=== PATIENT | male | born 1980 | race Caucasian/White ===

== ENCOUNTER 2016-08-07 05:56 | Observation (INO) ==
[2016-08-07] MEDS ORDERED: Acetaminophen 325 MG TABLET PO PRN (08:35)
[2016-08-07] MEDS ORDERED: Naloxone 0.4 MG/ML INJ IVP PRN (08:35)
[2016-08-07] MEDS ORDERED: Ondansetron ODT 4 MG TAB.RAPDIS SL PRN (08:35)
--- NOTE | 2016-08-07 08:48 | Cardiology History & Physical ---
Date of Encounter: 08/07/16 Time of Encounter: 08:20 Assessment and Plan (1) Chest pain Current Visit: Yes Status: Acute Typical chest pain symptoms. Troponin negative x 1 per report from outside hospital. Records ordered. Trend troponin. Check TTE. Plan for stress test if troponin negative. Qualifiers: Chest pain type: unspecified Qualified Code(s): R07.9 - Chest pain, unspecified (2) CAD (coronary artery disease) Current Visit: Yes Status: Chronic H/o IN and PCI to the LAD in 2010, minimal disease otherwise. Continue asa, statin, and bb. Stopped taking plavix one month ago. Risk factor modification. Smoking cessation. Healthy diet and exercise. Qualifiers: Coronary Disease-Associated Artery/Lesion type: jamul artery [place] vs. transplanted heart: jamul heart Associated angina: angina presence unspecified Qualified Code(s): I25.10 - Atherosclerotic heart disease of jamul coronary artery without angina pectoris (3) Tobacco abuse Current Visit: No Status: Chronic Smoking cessation discussed. (4) Hypertension Current Visit: No Status: Chronic B/p acceptable. Qualifiers: Hypertension type: essential hypertension Qualified Code(s): I10 - Essential (primary) hypertension (5) SOPHIA (obstructive sleep apnea) Current Visit: No Status: Chronic Discussed compliance with C-pap. He does not consistently wear. History of Present Illness Chief complaint: Chest pain HPI: Mr. 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 He describes midsternal chest pain radiating to his left arm and diaphoresis. He sat down to rest and his symptoms resolved. Last night at 0100 he experienced chest pain that woke him up from his sleep. The pain radiated down his left arm and was associated with SOB. Pain was similair to his previous IN. He took a 325mg aspirin and sat up in a chair with relief of his pain and SOB. He went to [facility]. Work-up included an EKG that showed NSR with no acute ST changes. Initial troponin was negative. he was found to have leukocytosis, WBC 17 per report given by nurse. He was transferred to [facility] by request of patient for further work-up. Actual records have been ordered. He denies fever, chills, cough. Denies recent illness or steroid use. He is currently pain free. Past Med Surg Social Fam HX - Past Medical History Attestation: Yes The following information was validated with the patient. Medical history: coronary artery disease, hyperlipidemia, hypertension, myocardial infarction, other (SOPHIA- does not always wear c-pap.) Psychiatric history: no psych history - Past Surgical History Surgical History: angioplasty/stent - Social History Smoking Status: Current every day smoker Packs per day: 1 Smokeless Tobacco Status: No Alcohol use: none Drug use: none - Family History Mother Age: 50 Family Member Ethnicity: Unknown Living Status: Still Living Hx Family Endocrine Disorder: Yes (diabetes) Father Age: 60 Hx Family Cardiac Disorders: Yes (afib) Medications and Allergies Aspirin [Lo-Dose Aspirin EC] 81 mg DAILY 08/07/16 [History] Carvedilol 12.5 mg PO BID 08/07/16 [History] Nitroglycerin 0.4 mg SL Q5MIN 08/07/16 [History] Omeprazole 20 mg PO DAILY 08/07/16 [History] Proair Hfa 2 puff AER BID PRN 08/07/16 [History] Simvastatin [Zocor] 40 mg PO HS 08/07/16 [History] Allergies Penicillins Allergy (Verified 08/07/16 08:57) Hives All Systems Review: A 10-system review of systems was performed and is negative for pertinent findings except as documented above in the HPI. Physical Examination Vital Signs, Last 4 Hours Temp Pulse Resp BP Pulse Ox 08/07/16 08:01 98.0 F 63 16 130/83 97 General: Conversant, No Apparent Distress HEENT: Atraumatic, Normocephaly, Mucus Membranes Moist Neck: No JVD, Normal carotid pulses Cardiac: Reg Rate and Rhythm, Normal S1 and S2, No Murmur Lungs: Normal Breath Sounds, No Wheeze, Rales, Rhonchi Neuro: Alert and responsive, No focal deficits noted Abdomen: Soft, Non-Tender Skin: No rashes noted on visualized skin Musculoskeletal: No Chest Wall Tenderness Extremities: No Clubbing, No Cyanosis, No Edema, Normal Pulses Results - Imaging and Cardiology Chest Xray: pending (Ordered from outside hospital) - EKG Interpretation EKG results cardiology: personally reviewed (Sr with no acute ST changes.)
[2016-08-07] MEDS ORDERED: Nitroglycerin 0.4 MG TAB.SUBL SL PRN (09:15)
[2016-08-07 09:27] LABS: Basophils # 0.1 K/mcL (0.0-0.2); Basophils % 0.4 %; Eosinophils # 0.2 K/mcL (0.0-0.6); Eosinophils % 2.1 %; Hematocrit 41.5 % (37.5-50.1); Immature Granulocytes % 0.4 % (0-4); Lymphocytes # 3.9 K/mcL (0.6-4.6); Lymphocytes % 35.2 %; Mean Corpuscular HGB Conc 33.7 g/dL (31.6-35.5); Mean Corpuscular Hemoglobin 29.2 pg (28.0-33.3); Mean Corpuscular Volume 86.5 fL (83.0-100.0); Mean Platelet Volume 10.5 fL (9.4-12.4); Monocytes # 0.8 K/mcL (0.0-1.3); Monocytes % 7.5 %; Neutrophils # 6.1 K/mcL (1.6-8.9); Platelet Count 212 K/mcL (140-400); Segmented Neutrophils % 54.4 %
[2016-08-07 09:38] LABS: BUN/Creatinine Ratio 16 (6-26); Blood Urea Nitrogen 13 mg/dL (8-26); Carbon Dioxide 25 mEq/L (19-29); Chloride 106 mEq/L (98-109); Glucose 118 mg/dL (70-99); Magnesium 1.9 mg/dL (1.6-2.6); Osmolality,Calculated 289 (280-300); Potassium 3.6 mEq/L (3.5-4.5); Sodium 139 mEq/L (136-145); eGFR For African Americans > 60 (> 60); eGFR For Non-African Americans > 60 (> 60)
[2016-08-07] MEDS ORDERED: Regadenoson 0.4 MG/5 ML SYRINGE IVP ONE (13:27)
--- NOTE | 2016-08-07 15:13 | Nuclear Medicine Stress Report ---
Low Level Regadenoson Name: Osmani Steele Date of Study: 08/07/2016 Date: 1980 Ht: 77.0 in Medical Record#: [id number] Age: 35 Wt: 315.0 lb Gender: Male Order #: [id number] Location: [facility] IP Room: 3B Supervising Provider: Jovan Castano CNP Reading Physician: Blair Dexter MD, [facility] Ordering Physician: Ned Grijalva MD, [facility] Primary Care Physician: None Stress Technologist: Padmini Brown TUBE INSPECTOR, [facility] Convention Manager: Vicente Francois Indications: Chest Pain Impression: No significant ECG changes with regadenoson and low level exercise. Gated LVEF > 70%. There is a medium sized, moderate intensity, reversible perfusion defect involving the basal-apical inferior wall and basal-mid inferolateral wall. Findings are consistent with moderate reversible ischemia involving the inferior and inferolateral [place]wood. Inpatient cardiology service is aware of these abnormal findings. History: Hypertension History of Smoking Stress Test Summary: Stress Test Type: Low level pharmacologic Regadenoson 0.4mg/5ml given IV Baseline Information: Initial Heart Rate: 81 Blood Pressure: 128/80 Stress Information: Stress Time: 4 min 00 sec Test Terminated Due to (primary): As per protocol Maximum Blood Pressure: 158/90 Maximum Heart Rate: 115 Percent Maximum Heart Rate Achieved: 63 Double Product: 81846 METS Reached: 2.1 Symptoms: Arm NUMBNESS Nuclear Summary: SPECT myocardial perfusion imaging using Tc99m Sestamibi given intravenously was performed at rest and following cardiac stress testing. The resting images were obtained following initial dose of 9.9 mCi. Following stress an additional dose of 33.7 mCi was given at peak exercise or 30 seconds post regadenoson infusion. Findings: Stress Note * Resting ECG demonstrated normal sinus rhythm. * No baseline arrhythmias were noted. * Patient reported arm pain with regadenoson and low level exercise. This is a non-specific finding. * No arrhythmias were noted during stress. * No significant ECG changes with regadenoson and low level exercise. Hemodynamic responses * Normal hemodynamic responses to low level exercise plus pharmacologic stress. Study Quality * Study quality is good. Gated EF > 70% * Gated LVEF > 70%. Left Ventricle * The left ventricle is not dilated. * Normal Segmental Perfusion in rest. * There is a medium sized, moderate intensity, reversible perfusion defect involving the basal-apical inferior wall and basal-mid inferolateral wall. * Findings are consistent with moderate reversible ischemia involving the inferior and inferolateral smallwood. TID * No evidence of transient ischemic dilatation. Updated by Blair Dexter MD, [facility] on 08/07/2016 3:05:31 PM electronically signed on 08/07/2016 3:06:14 PM with status of Final
[2016-08-07] MEDS ORDERED: Perflutren Lipid Microsphere 1.3 ML in 0.9 % Sodium Chloride 8.7 ML IVP ONE (15:20)
[2016-08-07] MEDS ORDERED: 0.9 % Sodium Chloride 1,000 ML ONE ×2 (15:48→15:54)
[2016-08-07] MEDS ORDERED: Nitroglycerin 1,000 MCG/10 ML VIAL IV ONE (15:49)
[2016-08-07] MEDS ORDERED: Heparin 1,000 UNITS/500 mL NS 500 ML ONE (15:49)
[2016-08-07] MEDS ORDERED: *HR* Heparin 10,000 UNIT/10 ML VIAL ONE (15:49)
[2016-08-07] MEDS ORDERED: *HR* Midazolam HCl 2 MG/2 ML VIAL ONE (15:54)
[2016-08-07] MEDS ORDERED: *HR* FentaNYL (PF) 100 MCG/2 ML VIAL ONE (15:54)
--- NOTE | 2016-08-07 16:10 | Pre-Sedation Evaluation ---
Pre-sedation evaluation - Pre-sedation checklist Date of procedure: 08/07/16 Procedure: [facility] Recent Vitals: Last Vital Signs Temp 97.6 F 08/07/16 11:18 Pulse 60 08/07/16 11:18 Resp 16 08/07/16 11:18 BP 155/92 08/07/16 11:18 Pulse Ox 96 08/07/16 11:18 H&P (including ROS) documented in medical record: Yes Previous reaction to sedatives/anesthetics: No Dietary Status: NPO after Midnight Airway Assessment: Patient can open mouth completely, TMJ function normal, Micrognathia (under-bite, receding chin) absent, Neck with adequate range of motion Dentition: No loose teeth or bridges Possible difficult airway: No ASA Classification *see protocol: CLASS II-Mild systemic disease Plan of Care: Pt appropriate candidate for procedure/moderate/conscious sedation , Risks/benefits of procedure/sedation discussed w/ patient/family
--- NOTE | 2016-08-07 16:46 | Discharge Summary ---
Date of Encounter: 08/07/16 Time of Encounter: 17:00 - Discharge Diagnosis (1) Chest pain Priority: Primary Status: Resolved Qualifiers: Chest pain type: chest pain due to myocardial ischemia Ischemic chest pain type: stable angina pectoris Qualified Code(s): I20.8 - Other forms of angina pectoris (2) CAD (coronary artery disease) Priority: Primary Status: Chronic Qualifiers: Coronary Disease-Associated Artery/Lesion type: [place] artery [place] vs. transplanted heart: [place] heart Associated angina: with stable angina Qualified Code(s): I25.118 - Atherosclerotic heart disease of [place] coronary artery with other forms of angina pectoris (3) Hypertension Priority: Secondary Status: Chronic Qualifiers: Hypertension type: essential hypertension Qualified Code(s): I10 - Essential (primary) hypertension (4) SOPHIA (obstructive sleep apnea) Priority: Secondary Status: Chronic (5) Tobacco abuse Priority: Secondary Status: Chronic - Discharge Medications Prescriptions: Atorvastatin [Lipitor] 80 mg PO HS #30 tablet Clopidogrel [Plavix] 75 mg PO DAILY #30 tablet Isosorbide MONOnitrate (24 HR) [Imdur] 30 mg PO DAILY #30 tab.er.24h Home Medications: Albuterol Sulfate [Proair Hfa] 2 puff IH Q4H PRN 08/07/16 [History] Aspirin [Lo-Dose Aspirin EC] 81 mg DAILY 08/07/16 [History] Atorvastatin [Lipitor] 80 mg PO HS #30 tablet 08/07/16 [Rx] Carvedilol 12.5 mg PO BID 08/07/16 [History] Clopidogrel [Plavix] 75 mg PO DAILY #30 tablet 08/07/16 [Rx] Fluticasone Propionate [Flovent Hfa] 110 mcg IH BID 08/07/16 [History] Isosorbide MONOnitrate (24 HR) [Imdur] 30 mg PO DAILY #30 tab.er.24h 08/07/16 [ Rx] Nitroglycerin 0.4 mg SL Q5MIN 08/07/16 [History] Omeprazole 20 mg PO DAILY 08/07/16 [History] Allergies/Adverse Reactions: Allergies Penicillins Allergy (Verified 08/07/16 08:57) Hives Procedures/tests Complete & Pending: Procedures Performed prior 72 hours Category Date Time Status CL Cardiac Catheterization [CL] Routine Claim Professional 08/07/16 15:13 Ordered NM sherry perf SPECT multi [NM] Routine Exams 08/07/16 10:54 Taken EV echocardiogram w enhance Routine Y 08/07/16 08:31 Completed SP pharm nuclear stress Routine Y 08/07/16 10:53 Completed Date of admission: 08/07/16 07:34 Primary care physician: PCP NO Discharging clinician: Emilie Saul Anticipated date of discharge: 08/07/16 - Patient Status Disposition: Home, Self-Care Condition: Good Functional capacity at discharge: independent ambulation Overall status at discharge: patient is back to baseline - Discharge Instructions Follow Up With: NO,PCP [Primary Care Provider] - Preeti Marroquin DO [Partnered Physician] - (Follow-up in 1-2 weeks. Office will call with appt. ) Additional Instructions: RISK FACTORS: STOP SMOKING: If you smoke, STOP. Smoking or tobacco use significantly increases your risk of heart disease because nicotine causes the arteries to narrow or constrict. It also causes fats to stick to the artery. Your chances of having a heart attack are greatly increased if you continue to smoke. For more information, call the education line for smoking cessation [id number]-[id number] EAT A LOW FAT/CHOLESTEROL/SODIUM DIET: This diet may help reduce your chances of having a heart attack. LIFTING: Avoid lifting anything more than 10 pounds for 5-7 days Prior to straining, laughing, sneezing and/or coughing, apply manual pressure directly over insertion site. ACTIVITY: You may walk or climb stairs as tolerated You can resume sexual activity as tolerated In general, you are encouraged to engage in a minimum of 30 minutes or more of moderate intensity physical activity, such as brisk walking, daily or at least 3 -4 times weekly BATHING Do not submerge the site into water (bath tub, hot tub, swimming pool) for 1 week. This can be a source for infection into the blood stream. You may shower after 24 hours SITE CARE: After 24 hours, you may remove the dressing and leave the site open to air. Keep the site clean and dry. Clean gently and pat dry. You can expect bruising and tenderness that gradually resolve within a week or two. Return to work as instructed per your physician Resume driving as instructed per physician Keep all scheduled follow up appointments Resume medications as instructed IMPORTANT: If prescribed a Platelet Aggregation Inhibitor such as, Plavix, Brilinta or Effient: Duration of therapy is minimum one year These medications are often used in combination with Aspirin in prevention of future heart attacks Never discontinue unless consult with your Carroting Machine Offbearer STROKE (CVA) Risk factors for a stroke are: Age, cigarette smoking, diabetes, excessive alcohol consumption, family history, high blood pressure, overweight, physical inactivity, prior stroke, heart attack, diagnosis of carotid artery stenosis or other artery disease. Warning signs: Sudden numbness or weakness of the face, arm or leg; especially on one side of the body, sudden confusion, trouble speaking or understanding, sudden trouble seeing in one or both eyes, sudden trouble walking, dizziness, loss of balance or coordination, sudden severe headache with no cause. Call 911 or go to the Emergency Room. CONGESTIVE HEART FAILURE: If you have been diagnosed with Congestive Heart Failure (CHF) and your symptoms return, make an appointment with your physician Weigh yourself daily. Notify your physician if you have a weight gain of two or more pounds in one day or five or more pounds in one week. If you experience any difficulty breathing, please call 911 BLEEDING: Although the risk of bleeding is minimal, it can happen. If you have any bleeding from the site, apply firm pressure above the puncture site for 10-15 minutes. If the bleeding does not stop, continue manual pressure and call 911 Contact your physician if: You develop a fever greater than 101 degrees Fahrenheit Your site becomes reddened or has any drainage You have an increase in pain or burning at the site or if a large knot forms at the site. If you experience chest pain, shortness of breath, dizziness, or extreme tiredness, stop the activity and rest. Please notify your physicians office if you experience any of these symptoms and they are not relieved by rest please call 911! - Diet and Activity Activity: resume usual activities as tolerated (per post LHC/angiogram restrictions. ) Diet: low fat, low cholesterol, low salt diet - Hospital Course Hospital course: Mr. Steele is a 35 year old male who presented from [facility] with typical chest pain symptoms; troponin negative and ECG was without ischemic changes. He proceeded with nuclear stress test which was found to be abnormal therefore [facility] recommended. [facility] completed which demonstrated prior patent stent; otherwise non-obstructive CAD. Perfusion abnormality and symptoms felt to be secondary to microvascular disease, he was started on long acting nitrate upon discharge. Patient and family also want to resume home plavix (stopped 9 days ago). Statin was optimized. He will be discharged to home later this evening after post C discharge orders have been completed including right groin site care. All questions and concerns were addressed, Mr. Steele and family verbalized understanding of all information provided. He is being prepped for discharge to home in stable condition. He will follow-up with [facility] in 1-2 weeks. The patient was discussed and reviewed with Dr. Dexter who agrees with plan as stated above. Time spent discussing smoking cessation with patient: 3 to 10 minutes - Time Spent with Patient Total time spent providing and/or coordinating discharge services: 30 minutes Greater than 30 minutes Specific discharge activities: per post angiogram discharge instructions-- femoral approach, please provide patient with written copy. No heavy lifting > 5lbs for at least 1 week. Avoid excessive stair climbing until site healed. May shower 24 hours after cath. Keep site clean and dry until healed. Physical Examination General: Conversant, No Apparent Distress HEENT: Atraumatic, Normocephaly, Mucus Membranes Moist Cardiac: Reg Rate and Rhythm, Normal S1 and S2 Lungs: Normal Breath Sounds Neuro: Alert and responsive Abdomen: Soft Skin: No rashes noted on visualized skin Musculoskeletal: No Chest Wall Tenderness Extremities: No Edema, Normal Pulses Other: Right groin cath: dressing clean, dry, and intact.
--- NOTE | 2016-08-07 17:22 | Invasive Diagnostic Lab ---
Name: Osmani Steele Date of Study: 08/07/2016 Date: 1980 Ht: 196.0 cm /77.2 in Medical Record#: [id number] Age: 35 Wt: 138. kg / 304.24 lb Account/Order#: [id number] Gender: Male BSA: 2.68 Order #: [id number] Fluoro Dose: 519 mGy BMI: 35.92 Procedure Physician: Mone Grijalva MD, FACC Referring MD: Referring MD: Procedures Performed: LEFT HEART CATH Indications: Abnormal Test - Stress Impressions: Single vessel coronary artery disease. Previously stented prox/mid LAD widely patent. The left ventricle is normal and has normal contractility EF 55% Recommendations: Optimal medical therapy of patient's disease. Aggressive risk factor modification. History/Risk Factors: CAD Hypertension Dyslipidemia Prior DC Previous PCI Procedure Access obtained in the right Femoral artery by percutaneous puncture Complications: None Contrast: Isovue 70ml Closure Device: MynxGrip Hemodynamics: Pressures Site Systolic/ A Wave Diastolic/ V Wave End Diastolic/ Mean HR AO 144 109 125 54 AO 125 89 105 38 AO 129 95 111 42 LV 86 15 31 39 LV 127 -46 99 25 LV 0 LV 121 11 74 19 AO 0 LV Ventriculography Ejection Method: LV Gram Ejection Fraction: 55% Wall Motion: KEYS Anterobasal Normal Anterolateral Normal Apical: Normal Inferoapical Normal Inferobasal Normal Coronary Dominance: right Lesion Findings/Interventions * Left Main Coronary Artery There is a 15% stenosis in the LMCA. * Left Anterior Descending There is a 30% stenosis in the Proximal LAD. There is a 15% in-stent re-stenosis in the prox/mid LAD. There is a 30% stenosis in the Distal LAD. * Circumflex There is a 30% stenosis in the Proximal Circumflex. There is a 30% stenosis in the 1st Marginal. * Ramus There is a 25% stenosis in the Ramus. * Right Coronary Artery There is a 30% stenosis in the Proximal RCA. There is a 40% stenosis in the Mid RCA. There is a 30% stenosis in the Distal RCA. Updated by RT Alden (R) on 08/07/2016 4:58:55 PM Mone Grijalva MD, FACC electronically signed on 08/07/2016 5:18:24 PM with status of Final
[2016-08-07] MEDS ORDERED: *HR* Heparin 5,000 UNIT/ML VIAL SQ SCH (18:00)
[2016-08-07 19:14] VITALS: BP 120/81
[2016-08-08] MEDS ORDERED: Aspirin Enteric Coated 81 MG Tablet PO SCH (09:00)
[2016-08-08] MEDS ORDERED: Isosorbide MONOnitrate (24 HR) 30 MG TAB.ER.24H PO SCH (09:00)
== END 2016-08-07 21:10 | disposition home or self-care (01) ==
LOC: 3BNU
PROVIDERS: ADMIT Internal Medicine Clinical Cardiac Electrophysiology; ATTEND Internal Medicine Clinical Cardiac Electrophysiology

== ENCOUNTER 2016-08-26 05:20 | Inpatient (IN) ==
[2016-08-26] MEDS ORDERED: Acetaminophen 325 MG TABLET PO PRN (09:07)
[2016-08-26] MEDS ORDERED: *HR* OxyCODONE Immed Rel 5 MG TABLET PO PRN (09:07)
[2016-08-26] MEDS ORDERED: Naloxone 0.4 MG/ML INJ IVP PRN (09:07)
[2016-08-26] MEDS ORDERED: *HR* Morphine 2 MG/ML SYRINGE IVP PRN (09:07)
[2016-08-26] MEDS ORDERED: Aspirin Enteric Coated 81 MG Tablet PO SCH (09:15)
[2016-08-26] MEDS ORDERED: Isosorbide MONOnitrate (24 HR) 30 MG TAB.ER.24H PO SCH (09:15)
[2016-08-26] MEDS ORDERED: (Fluticasone Propionate [Flovent Hfa] 1 PUFF) IH SCH (09:15)
--- NOTE | 2016-08-26 09:18 | Internal Med History&Physical ---
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 Heath, Vascular surgery Cardiology and vascular will see patient NPO except ice chips till surgery eval Continue telemetry monitoring (2) CAD (coronary artery disease) Current visit: Yes Status: Chronic History of prior stent and recent LHC 08/07 with microvascular disease Continue ASA, Imdur, BB, Hold Plavix NO chest pain at this time Qualifiers: Coronary Disease-Associated Artery/Lesion type: [place] artery [place] vs. transplanted heart: [place] heart Associated angina: with stable angina Qualified Code(s): I25.118 - Atherosclerotic heart disease of [place] coronary artery with other forms of angina pectoris (3) Hypertension Current visit: Yes Status: Chronic Controlled, continue home meds Qualifiers: Hypertension type: essential hypertension Qualified Code(s): I10 - Essential (primary) hypertension (4) SOPHIA (obstructive sleep apnea) Current visit: Yes Status: Chronic Ensure CPAP at night (5) Tobacco abuse Current visit: Yes Status: Chronic Declines NRT, counselling for now (6) Obesity (BMI 30-39.9) Current visit: Yes Status: Chronic Lifestyle modification Internal Medicine - H&P: HPI Chief complaint: R groin pain and swelling Admitted From: Home Plans for Post Hospital Care: Home History of present illness: Mr. Steele is a 35 year old male with PMH of SOPHIA, HTN, CAD s/p Stent placed >1 year ago, recent LHC 08/07/16 with patent stent and microvascular disease who presented to an outside facility with complains of R groin swelling and pain which has been progressive and started afterhis cath he reports pain was initially bearable but in the past few days, he has been unable to move, with pain being 10/10 for any movement. Pain is dull achy in nature, radiates to his back and his testicles, and not relieved by OTC medications or rest. He denies any dizziness, easy fatigability, shortness of breath, confusion or pre-syncope He denies chest pain, palpitations, or ankle swelling No change in urinary or bowel habits He is a smoker, smokes 1PPD, occasionally drinks alcohol He was given pain medications and worked up at referring facility. CBC showed WBC 13.8, Hb 13.7, PLT WNL, Chem with mild hypoklameia, K 3.2, otherwise normal chem. Abd/pelvis CT showed hepatic steatosis and R common femoral aneurysm , hence, patient was referred here for further management At time of review, he is diaphoretic from pain which he describes as 6/10, denies any other complains Past Med Surg Social Fam HX - Past Medical History Medical history: coronary artery disease, hyperlipidemia, hypertension, myocardial infarction, other Psychiatric history: no psych history - Past Surgical History Surgical History: angioplasty/stent, appendectomy - Social History Smoking Status: Current every day smoker Smokeless Tobacco Status: No Alcohol use: none Drug use: none - Family History Mother Family Member Ethnicity: Unknown Living Status: Still Living Hx Family Endocrine Disorder: Yes (Diabetes) Father Hx Family Cardiac Disorders: Yes (AFIB) Internal Medicine - H&P: Meds Albuterol Sulfate [Proair Hfa] 2 puff IH Q4H PRN 08/07/16 [History] Aspirin [Lo-Dose Aspirin EC] 81 mg DAILY 08/07/16 [History] Carvedilol 12.5 mg PO BID 08/07/16 [History] Clopidogrel [Plavix] 75 mg PO DAILY #30 tablet 08/07/16 [Rx] Fluticasone Propionate [Flovent Hfa] 1 puff IH BID 08/07/16 [History] Isosorbide MONOnitrate (24 HR) [Imdur] 30 mg PO DAILY #30 tab.er.24h 08/07/16 [ Rx] Nitroglycerin 0.4 mg SL Q5MIN 08/07/16 [History] Omeprazole 20 mg PO BID 08/07/16 [History] Albuterol Neb [Proventil Neb] 2.5 mg IH Q4HR PRN 08/26/16 [History] Allergies Penicillins Allergy (Verified 08/07/16 08:57) Hives All Systems PM: A 10-system review of systems was performed and is negative for pertinent findings except as documented above in the HPI. - Constitutional Vitals: Pulse Resp BP Pulse Ox 66 17 147/90 97 08/26/16 06:56 08/26/16 06:56 08/26/16 06:56 08/26/16 06:56 General appearance: Present: mild distress, morbidly obese, pleasant - Head Head exam: Present: atraumatic, normocephalic - Eye Eye exam: Present: PERRL, conjuntiva pink, sclera anicteric Pupils: Present: PERRL - Neck Neck exam general surgery: Present: supple, trachea midline. Absent: lymphadenopathy - Respiratory Respiratory exam: Present: CTAB. Absent: accessory muscle use, rales, rhonchi, wheezes - Cardiovascular Cardiovascular exam: Present: RRR, +S1, +S2. Absent: diastolic murmur, gallop, rubs, systolic murmur - GI/Abdominal GI/Abdominal exam: Present: normal bowel sounds, soft, no peritoneal signs. Absent: distended, tenderness - Additional comments: R groin swelling, tenderness+++, no ecchymoses seen, no ecchymoses on the back, femoral pulse palpable, R foot well perfused, dorsalis pedis palpable - Extremities Exam Extremities exam: Present: warm, radial pulses palpable and symetrical. Absent : calf tenderness, cyanotic, pedal edema - Neurological Exam Neurological exam: Present: alert, CN II-XII intact, oriented X3, no focal deficits. Absent: pronater drift, facial droop, speech deficit - Skin Skin exam: Present: dry, intact
[2016-08-26 09:37] LABS: Basophils # 0.1 K/mcL (0.0-0.2); Basophils % 0.5 %; Eosinophils # 0.2 K/mcL (0.0-0.6); Hematocrit 39.6 % (37.5-50.1); Hemoglobin 13.4 g/dL (12.9-16.9); Immature Granulocytes % 0.3 % (0-4); Lymphocytes # 3.9 K/mcL (0.6-4.6); Lymphocytes % 35.7 %; Mean Corpuscular HGB Conc 33.8 g/dL (31.6-35.5); Mean Corpuscular Hemoglobin 29.3 pg (28.0-33.3); Mean Corpuscular Volume 86.7 fL (83.0-100.0); Mean Platelet Volume 10.2 fL (9.4-12.4); Monocytes # 0.9 K/mcL (0.0-1.3); Monocytes % 8.7 %; Neutrophils # 5.7 K/mcL (1.6-8.9); Platelet Count 267 K/mcL (140-400); Red Blood Count 4.57 M/mcL (4.19-5.50); Red Cell Distribution Width 12.1 % (11.5-14.5); Segmented Neutrophils % 52.8 %
[2016-08-26 09:42] LABS: Prothrombin Time 11.3 Seconds (9.4-12.1)
[2016-08-26 09:44] LABS: Activated Partial Thrombo Time 32.1 Seconds (26.0-36.0)
[2016-08-26] MEDS ORDERED: 0.9 % Sodium Chloride 1,000 ML IVC SCH (09:45)
[2016-08-26 09:48] LABS: BUN/Creatinine Ratio 14 (6-26); Blood Urea Nitrogen 12 mg/dL (8-26); Calcium 9.1 mg/dL (8.6-10.8); Carbon Dioxide 27 mEq/L (19-29); Chloride 105 mEq/L (98-109); Glucose 102 mg/dL (70-99); Osmolality,Calculated 290 (280-300); Potassium 3.7 mEq/L (3.5-4.5); Sodium 140 mEq/L (136-145); eGFR For African Americans > 60 (> 60); eGFR For Non-African Americans > 60 (> 60)
[2016-08-26 11:47] VITALS: BP 157/84
--- NOTE | 2016-08-26 15:40 | Vascular/Endovasc Consult Note ---
<Mone Magana Stefania - Last Filed: 08/26/16 16:03> Date of Encounter: 08/26/16 Time of Encounter: 10:00 Assessment and Plan (1) Right groin pain Current Visit: Yes Status: Acute Arterial duplex complete and shows no evidence of right groin pseudoaneurysm Right groin hematoma noted No surgical intervention indicated at this time Supportive care/pain control - History of Present Illness Consult date: 08/26/16 Requesting physician: Lonnie Cruz Consult reason: R/O right groin pseudoaneurysm Chief complaint: Right groin pain History of present illness: Mr. Steele is a 35 year old male who was initially seen and evaluated at [facility] for complaints of acute onset of right groin pain starting 24 hours ago. He states that the pain came on suddenly but denies any injury or activities which would have caused right groin pain. He states that walking made the pain worse. The progress of the point that he states he could not walk and at that point he reported to the emergency department. He states that he did have a cardiac catheterization complete on 08/07/[address] Grijalva. He states that he has had pain in the right groin which started 3 days after his catheterization but it has never been this severe. He initially reported swelling in the right groin and testicle but states that had improved until yesterday when he felt a pop in his groin. Denies any fevers or chills. Denies any shortness of breath, chest pain, syncope. He does admit to feeling dizzy but relates this to the pain. He denies any difficulty with urination. He denies any bleeding or bruising to the right groin. He did have a CAT scan complete at the [facility] which showed concerns for a fluid collection in the right groin and concerns also for right groin pseudoaneurysm. He was transferred to [facility] for further workup and treatment. We have been asked to see and evaluate the patient for recommendations. Past Med Surg Social Fam HX - Past Medical History Source: patient, old records reviewed Medical history: coronary artery disease, hyperlipidemia, hypertension, myocardial infarction, other Psychiatric history: no psych history - Past Surgical History Surgical History: angioplasty/stent (2010), appendectomy - Social History Smoking Status: Current every day smoker Smokeless Tobacco Status: No Alcohol use: none Drug use: none - Family History Mother Family Member Ethnicity: Unknown Living Status: Still Living Hx Family Endocrine Disorder: Yes (Diabetes) Father Hx Family Cardiac Disorders: Yes (AFIB) Medications and Allergies Albuterol Sulfate [Proair Hfa] 2 puff IH Q4H PRN 08/07/16 [History] Aspirin [Lo-Dose Aspirin EC] 81 mg DAILY 08/07/16 [History] Carvedilol 12.5 mg PO BID 08/07/16 [History] Clopidogrel [Plavix] 75 mg PO DAILY #30 tablet 08/07/16 [Rx] Fluticasone Propionate [Flovent Hfa] 1 puff IH BID 08/07/16 [History] Isosorbide MONOnitrate (24 HR) [Imdur] 30 mg PO DAILY #30 tab.er.24h 08/07/16 [ Rx] Nitroglycerin 0.4 mg SL Q5MIN 08/07/16 [History] Omeprazole 20 mg PO BID 08/07/16 [History] Albuterol Neb [Proventil Neb] 2.5 mg IH Q4HR PRN 08/26/16 [History] HYDROcodone/Acet 5/325 mg [[place] 5-325 mg] 1 tab PO Q6H PRN #30 tab 08/26/16 [Rx ] Ibuprofen 800 mg PO TID #50 tablet 08/26/16 [Rx] Allergies Penicillins Allergy (Verified 08/07/16 08:57) Hives All Systems Review: A 10-system review of systems was performed and is negative for pertinent findings except as documented above in the HPI. Exam General: Present: Conversant, No Apparent Distress, Well developed, Well nourished HEENT: Present: Atraumatic, Normocephaly, Trachea midline Lungs: Present: Normal Breath Sounds, No Wheeze, Rales, Rhonchi Neuro: Present: Alert and responsive, No focal deficits noted Abdomen: Present: Soft, Non-tender Vascular: Present: Pulse, normal, Other (right groin with tenderness on evaluation, no ecchymosis noted) Skin: Present: No rashes noted on visualized skin Consult Discharge Plan - Plan Referrals: NO,PCP [Primary Care Provider] - Prescriptions: HYDROcodone/Acet 5/325 mg [[place] 5-325 mg] 1 tab PO Q6H PRN #30 tab PRN Reason: Pain Ibuprofen 800 mg PO TID #50 tablet - Attending Attestation I examined this patient and my medical decision-making was reviewed with the DAIRY WORKER/PA/Advanced Practice Nurse/Resident Physician. I agree with the documented findings, disposition and treatment plan as described except to the extent set forth below. <Dave Obrien - Last Filed: 08/26/16 16:57> Date of Encounter: 08/26/16 - History of Present Illness History of present illness: Mr. Steele is a 35 year old male All Systems Review: A 10-system review of systems was performed and is negative for pertinent findings except as documented above in the HPI. - Attending Attestation The patient is seen and evaluated. He has a palpable knot or nodule just above the catheter entry site in the right groin. This is quite painful. Evaluation at another hospital suggested pseudoaneurysm however arterial duplex evaluation here at [facility] failed to demonstrate any pseudoaneurysm. Treatment will consist of symptomatic therapy. No surgical intervention is necessary. Dave Obrien MD FACS
[2016-08-26] MEDS ORDERED: *HR* Heparin 5,000 UNIT/ML VIAL SQ SCH (16:00)
== END 2016-08-26 18:28 | disposition home or self-care (01) | DRG 813 ==
LOC: 2NENU
PROVIDERS: ADMIT Internal Medicine; ATTEND Internal Medicine